=== PATIENT | female | born 1935 | race Two or more races ===

== ENCOUNTER 2018-11-01 10:52 | Inpatient (IN) | payer OTHER ==
[~2018-11-01] VITALS: Ht 152.4 cm; Wt 58.2 kg
[2018-11-01 11:09] LABS: GLUCOSE,POINT OF CARE 135 MG/DL (70-110)
[2018-11-01] MEDS ORDERED: AMLO-512 PO (11:29)
[2018-11-01] MEDS ORDERED: FURO20 PO (11:29)
[2018-11-01] MEDS ORDERED: ATOR40TA28 PO (11:29)
[2018-11-01] MEDS ORDERED: SERT100T12 PO (11:29)
[2018-11-01] MEDS ORDERED: METO-558 PO (11:29)
[2018-11-01] MEDS ORDERED: OMEP20 PO (11:33)
[2018-11-01] MEDS ORDERED: SITA100 PO (11:33)
[2018-11-01] MEDS ORDERED: FERR325T24 PO (11:33)
[2018-11-01] MEDS ORDERED: CALC25 PO (11:33)
[2018-11-01] MEDS ORDERED: VITAD1000 PO (11:33)
[2018-11-01] MEDS ORDERED: DONE10TA8 PO (11:33)
[2018-11-01 11:55] LABS: BASOPHILS % (AUTO) 0.2 % (0.0-2.0); EOSINOPHILS % (AUTO) 0.2 % (1.0-6.0); HEMATOCRIT 24.4 % (36-46); HEMOGLOBIN 7.9 g/dL (12.0-16.0); LYMPHOCYTES # (AUTO) 1.2 K/uL (1.0-4.8); LYMPHOCYTES % (AUTO) 9.8 % (22.0-44.0); MEAN CORPUSCULAR HEMOGLOBIN 33.8 pg (26.0-34.0); MEAN CORPUSCULAR HGB CONC 32.4 G/dL (31.0-37.0); MEAN CORPUSCULAR VOLUME 105 fL (80-100); MONOCYTES # (AUTO) 0.9 K/uL (0.1-1.0); MONOCYTES % (AUTO) 7.1 % (2.0-9.0); NEUTROPHILS # (AUTO) 10.1 K/uL (1.8-7.7); NEUTROPHILS % (AUTO) 82.7 % (40.0-70.0); PLATELET COUNT (AUTO) 307 K/uL (150-450); RED BLOOD CELL COUNT(AUTO) 2.33 MIL/uL (4.00-5.20); RED CELL DISTRIBUTION WIDTH 14.6 % (11.5-14.5)
[2018-11-01 12:05] LABS: CALCIUM, TOTAL 8.3 mg/dL (8.8-10.5); CREATININE 2.77 mg/dL (0.60-1.30)
[2018-11-01 12:09] LABS: INFLUENZA TYPE A NEGATIVE FOR TYPE A (NEGATIVE); INFLUENZA TYPE B NEGATIVE FOR TYPE B (NEGATIVE)
[2018-11-01 12:10] LABS: ALBUMIN 2.4 g/dL (3.4-5.0); BILIRUBIN,TOTAL 0.4 mg/dL (0.1-1.0); TOTAL PROTEIN, SERUM 6.4 g/dL (6.4-8.2)
[2018-11-01 12:45] LABS: RETICULOCYTE % (AUTO) 4.1 % (0.5-2.3)
[2018-11-01] MEDS ORDERED: ALBUTEROL SULFATE 2.5 MG/0.5 ML NEB SOLUTION NEB ONE (12:45)
[2018-11-01] MEDS ORDERED: CefTRIAXone 1 GM/DEXTROSE 50 ML IV ONE (12:45)
[2018-11-01] MEDS ORDERED: DEXTROSE 50%-WATER 25 GM/50 ML SYRINGE IVP PRN (12:45)
[2018-11-01] MEDS ORDERED: NITROGLYCERIN 2% (1 GM=INCH) PACKET TP ONE (12:45)
[2018-11-01] MEDS ORDERED: IPRATROPIUM BROMIDE 0.5 MG/2.5 ML NEB SOLUTION NEB ONE (12:45)
[2018-11-01] MEDS ORDERED: ACETAMINOPHEN 500 MG TABLET PO ONE (12:45)
[2018-11-01] MEDS ORDERED: BISACODYL 10 MG RECTAL RECTAL SUPPOSITORY PR PRN (12:45)
[2018-11-01] MEDS ORDERED: ACETAMINOPHEN 325 MG TABLET PO PRN (12:45)
[2018-11-01] MEDS ORDERED: ASPIRIN 325 MG TABLET PO ONE (12:45)
[2018-11-01 13:02] LABS: % IRON SATURATION 13.2 % (22-44)
[2018-11-01 14:46] VITALS: BP 140/52
[2018-11-01 17:14] LABS: GLUCOMETER DEV NAME(LOC) 5S.2; GLUCOSE,POINT OF CARE 89 MG/DL (70-110)
[2018-11-01 19:57] VITALS: BP 123/42
[2018-11-01] MEDS: ATORVASTATIN CALCIUM 20 MG TABLET PO SCH (21:19)
[2018-11-01] MEDS: DOCUSATE SODIUM 100 MG CAPSULE PO SCH (21:19)
[2018-11-01] MEDS: HEPARIN SODIUM,PORCINE 5,000 UNITS/ML VIAL SQ SCH (21:20)
[2018-11-01] MEDS: INSULIN LISPRO 100 UNITS/ML SQ PRN (21:24)
[2018-11-02 00:06] VITALS: BP 101/41
[2018-11-02 03:40] LABS: GLUCOMETER DEV NAME(LOC) 5S.2; GLUCOSE,POINT OF CARE 184 MG/DL (70-110)
[2018-11-02 03:59] VITALS: BP 132/60
[2018-11-02 06:08] LABS: CALCIUM, TOTAL 8.4 mg/dL (8.8-10.5); CREATININE 2.61 mg/dL (0.60-1.30); POTASSIUM 4.3 mmol/L (3.5-5.1)
[2018-11-02 06:21] LABS: BASOPHILS % (AUTO) 0.6 % (0.0-2.0); EOSINOPHILS % (AUTO) 0.9 % (1.0-6.0); HEMATOCRIT 23.5 % (36-46); HEMOGLOBIN 7.9 g/dL (12.0-16.0); LYMPHOCYTES # (AUTO) 1.3 K/uL (1.0-4.8); MEAN CORPUSCULAR HEMOGLOBIN 35.6 pg (26.0-34.0); MEAN CORPUSCULAR HGB CONC 33.6 G/dL (31.0-37.0); MEAN CORPUSCULAR VOLUME 106 fL (80-100); MONOCYTES # (AUTO) 0.8 K/uL (0.1-1.0); MONOCYTES % (AUTO) 8.1 % (2.0-9.0); NEUTROPHILS # (AUTO) 7.2 K/uL (1.8-7.7); NEUTROPHILS % (AUTO) 76.4 % (40.0-70.0); PLATELET COUNT (AUTO) 301 K/uL (150-450); RED BLOOD CELL COUNT(AUTO) 2.22 MIL/uL (4.00-5.20); RED CELL DISTRIBUTION WIDTH 14.3 % (11.5-14.5)
[2018-11-02 07:26] VITALS: BP 169/80
[2018-11-02] MEDS: DOCUSATE SODIUM 100 MG CAPSULE PO SCH ×2 (07:59→20:33)
[2018-11-02] MEDS: ASPIRIN 81 MG CHEWABLE TABLET PO SCH (07:59)
[2018-11-02] MEDS: FAMOTIDINE 20 MG TABLET PO SCH (08:00)
[2018-11-02] MEDS: HEPARIN SODIUM,PORCINE 5,000 UNITS/ML VIAL SQ SCH ×2 (08:00→20:33)
[2018-11-02 11:28] VITALS: BP 143/61
[2018-11-02] MEDS: VITAMIN B COMP/VIT C/FOLIC ACID CAPSULE PO SCH (11:53)
[2018-11-02] MEDS: FERROUS SULFATE 325 MG EC TABLET PO SCH ×2 (11:54→17:52)
[2018-11-02] MEDS: INSULIN LISPRO 100 UNITS/ML SQ PRN ×3 (11:55→20:38)
[2018-11-02 15:24] VITALS: BP 148/62
[2018-11-02 19:49] LABS: GLUCOMETER DEV NAME(LOC) 5S.2; GLUCOSE,POINT OF CARE 183 MG/DL (70-110)
[2018-11-02 19:49] LABS: GLUCOMETER DEV NAME(LOC) 5S.1; GLUCOSE,POINT OF CARE 82 MG/DL (70-110)
[2018-11-02 19:50] LABS: GLUCOMETER DEV NAME(LOC) 5S.1; GLUCOSE,POINT OF CARE 229 MG/DL (70-110)
[2018-11-02] MEDS: ATORVASTATIN CALCIUM 20 MG TABLET PO SCH (20:33)
[2018-11-02 20:40] VITALS: BP 143/56
[2018-11-02 22:19] LABS: GLUCOMETER DEV NAME(LOC) 5S.1; GLUCOSE,POINT OF CARE 248 MG/DL (70-110)
[2018-11-03 00:02] VITALS: BP 122/62
[2018-11-03 05:18] VITALS: BP 123/56
[2018-11-03] MEDS: INSULIN LISPRO 100 UNITS/ML SQ PRN ×2 (05:41→11:43)
[2018-11-03 05:48] LABS: BASOPHILS % (AUTO) 0.7 % (0.0-2.0); EOSINOPHILS % (AUTO) 1.8 % (1.0-6.0); HEMATOCRIT 24.2 % (36-46); HEMOGLOBIN 7.9 g/dL (12.0-16.0); LYMPHOCYTES # (AUTO) 1.7 K/uL (1.0-4.8); LYMPHOCYTES % (AUTO) 22.8 % (22.0-44.0); MEAN CORPUSCULAR HGB CONC 32.6 G/dL (31.0-37.0); MEAN CORPUSCULAR VOLUME 104 fL (80-100); MONOCYTES # (AUTO) 0.7 K/uL (0.1-1.0); MONOCYTES % (AUTO) 10.3 % (2.0-9.0); NEUTROPHILS # (AUTO) 4.7 K/uL (1.8-7.7); NEUTROPHILS % (AUTO) 64.4 % (40.0-70.0); PLATELET COUNT (AUTO) 315 K/uL (150-450); RED BLOOD CELL COUNT(AUTO) 2.32 MIL/uL (4.00-5.20); RED CELL DISTRIBUTION WIDTH 14.3 % (11.5-14.5)
[2018-11-03 06:15] LABS: GLUCOMETER DEV NAME(LOC) 5S.2; GLUCOSE,POINT OF CARE 162 MG/DL (70-110)
[2018-11-03 07:19] LABS: CALCIUM, TOTAL 8.4 mg/dL (8.8-10.5); CREATININE 2.42 mg/dL (0.60-1.30)
[2018-11-03 07:51] VITALS: BP 152/69
[2018-11-03] MEDS: VITAMIN B COMP/VIT C/FOLIC ACID CAPSULE PO SCH (08:08)
[2018-11-03] MEDS: FERROUS SULFATE 325 MG EC TABLET PO SCH ×2 (08:08→11:42)
[2018-11-03] MEDS: ASPIRIN 81 MG CHEWABLE TABLET PO SCH (08:08)
[2018-11-03] MEDS: DOCUSATE SODIUM 100 MG CAPSULE PO SCH (08:08)
[2018-11-03] MEDS: FAMOTIDINE 20 MG TABLET PO SCH (08:09)
[2018-11-03] MEDS: HEPARIN SODIUM,PORCINE 5,000 UNITS/ML VIAL SQ SCH (08:09)
[2018-11-03 11:22] VITALS: BP 154/71
[2018-11-03 15:47] VITALS: BP 143/72
[2018-11-03 16:00] LABS: BILIRUBIN,URINE NEGATIVE (NEGATIVE); GLUCOSE, URINE (UA) 250 mg/dL (NEGATIVE); KETONES,URINE NEGATIVE (NEGATIVE); LEUKOCYTE ESTERASE ,URINE TRACE (NEGATIVE); NITRATE,URINE NEGATIVE (NEGATIVE); OCCULT BLOOD,URINE SMALL (NEGATIVE); PROTEIN,URINE SEE CONFIRM (NEGATIVE); UROBILINOGEN,URINE 0.2 mg/dL (<=1.0)
[2018-11-03 16:08] LABS: APPEARANCE,URINE SLIGHTLY CLOUDY (CLEAR)
[2018-11-03 16:09] LABS: BACTERIA,URINE None Seen /HPF (None Seen); SQUAMOUS EPITHELIAL CELL,UR Moderate /LPF (None Seen); SULFOSALICYLIC ACID,URINE 3+ (Negative); WBC,URINE 0-2 /HPF (0-5)
[2018-11-03 23:00] LABS: GLUCOMETER DEV NAME(LOC) 5S.1; GLUCOSE,POINT OF CARE 252 MG/DL (70-110)
== END 2018-11-03 17:35 | disposition home or self-care (01) | DRG 313 ==
LOC: EMS 10:54 → 5S 12:48
PROVIDERS: ADMIT Internal Medicine; ATTEND Internal Medicine
DX: R07.89 Other chest pain (principal); N17.9 Acute kidney failure, unspecified; I13.0 Hypertensive heart and chronic kidney disease with heart failure and stage 1 through stage 4 chronic kidney disease, or unspecified chronic kidney disease; N18.4 Chronic kidney disease, stage 4 (severe); I50.9 Heart failure, unspecified; E11.8 Type 2 diabetes mellitus with unspecified complications; F03.90 Unspecified dementia, unspecified severity, without behavioral disturbance, psychotic disturbance, mood disturbance, and anxiety; D53.9 Nutritional anemia, unspecified; E78.5 Hyperlipidemia, unspecified; E11.22 Type 2 diabetes mellitus with diabetic chronic kidney disease; D63.8 Anemia in other chronic diseases classified elsewhere; Z88.0 Allergy status to penicillin; Z79.82 Long term (current) use of aspirin
CPT/HCPCS: 83540; 83550; 85045; 87040; 87804; 93005; 93306; 94640; 96365; 99291; G0378; J0696; J1644